=== PATIENT | female | born 1980 | race Caucasian/White ===

== ENCOUNTER 2024-02-13 11:39 | Emergency (ER) | payer BC ==
[~2024-02-13] VITALS: Ht 157.5 cm; Wt 63.5 kg
[2024-02-13 11:43] VITALS: BP_SYST 127; PULSE 77; RESP 18; TEMP 98.2; O2SAT 99
[2024-02-13 13:57] VITALS: BP_SYST 127; PULSE 77; RESP 18; TEMP 98.2; O2SAT 99
== END 2024-02-13 13:59 | disposition home or self-care (01) ==
LOC: SED 11:39
DX: R07.89 Other chest pain (principal); R06.02 Shortness of breath; Z90.49 Acquired absence of other specified parts of digestive tract
CPT/HCPCS: 71045; 93005; 99283